=== PATIENT | female | born 1970 | race Caucasian/White ===

== ENCOUNTER 2019-05-15 09:51 | Emergency (ER) | payer OTHER, BC ==
--- NOTE | 2019-05-15 10:13 | Emergency Department Record ---
History of Present Illness - General Chief Complaint: Indigestion Stated Complaint: CHEST DISCOMFORT/HEARTBURN Time Seen by Provider: 05/15/19 10:06 Source: Patient Mode of Arrival: Ambulatory Limitations: No limitations - History of Present Illness Initial Comments: The patient is here due to upper abdominal pain with heartburn for 4 days. The patient's regular medicines are not helping. She states when she eats or drinks she is having pain in the upper abdomen. The patient also has had LÓPEZ and some very mild chest pressure with exertion over the last few days also along with mid back pain but believes the pressure is coming from the upper abdomen. There has been no sweating, nausea, or SOB at rest with the heartburn. The patient does have cardiac risk factors of tobacco use and high cholesterol. Onset/Timin -: Days(s) Pain Location: Substernal, Left chest, Right chest, Epigastric Severity: Mild Severity scale (1-10): 3 Quality: Aching, Heaviness, Sharp Consistency: Constant, Intermittent Improves With: Nothing Worsens With: Nothing Treatments Prior to Arrival: None - Related Data Home Medications Medication Instructions Recorded Confirmed Last Taken Omeprazole 20 mg PO DAILY 05/15/19 05/15/19 Unknown Previous Rx's Medication Instructions Recorded Sucralfate [Carafate] 1 gm PO QID #28 tablet 05/15/19 Allergies Allergy/AdvReac Type Severity Reaction Status Date / Time clindamycin Allergy Severe RASH Verified 05/15/19 09:58 oxycodone HCl [From Percocet] Allergy Intermediate ITCHING Verified 05/15/19 09:58 hydromorphone HCl Allergy Unknown ITCHING Unverified 05/15/19 09:58 Travel Screening - Travel/Exposure Within Last 30 Days Have you traveled within the last 30 days?: No Review of Systems Constitutional: Denies: Chills, Fever Eyes: Denies: Eye discharge ENT: Denies: Congestion, Throat pain Respiratory: Denies: Dyspnea Cardiovascular: Reports: Chest pain, Dyspnea on exertion Endocrine: Denies: Fatigue Gastrointestinal: Reports: Nausea. Denies: Diarrhea Genitourinary: Denies: Dysuria Musculoskeletal: Denies: Arthralgia Past Medical History - SOCIAL HISTORY Smoking Status: Current every day smoker Alcohol Use: Occasional Drug Use: None - RESPIRATORY Hx Respiratory Disorders: No - CARDIOVASCULAR Hx Cardio Disorders: Yes Comment:: high cholesterol - NEURO Hx Neuro Disorders: No - GI Hx GI Disorders: Yes Hx Reflux: Yes - Hx Genitourinary Disorders: No - ENDOCRINE Hx Endocrine Disorders: No - MUSCULOSKELETAL Hx Musculoskeletal Disorders: Yes Comment:: inflammatory arthritis - PSYCH Hx Psych Problems: No - HEMATOLOGY/ONCOLOGY Hx Hematology/Oncology Disorders: No Family Medical History Any Significant Family History?: Yes Hx Cancer: Father *Cancer Comment: throat Physical Exam - General General Appearance: Alert, Oriented x3, Cooperative, No acute distress - Head Head exam: Atraumatic, Normocephalic, Normal inspection - Eye Eye exam: Normal appearance, PERRL, EOMI - ENT Throat exam: Normal inspection. negative: Tonsillar erythema, Tonsillar exudate - Neck Neck exam: Normal inspection, Full ROM. negative: Tenderness - Respiratory Respiratory exam: Normal lung sounds bilaterally. negative: Respiratory distress - Cardiovascular Cardiovascular Exam: Regular rate, Normal rhythm, Normal heart sounds - GI/Abdominal GI/Abdominal exam: Soft, Tenderness (There is epigastric tenderness to palpation.). negative: Rebound, Rigid - Extremities Extremities exam: Normal inspection, Full ROM, Normal capillary refill. negative: Tenderness - Neurological Neurological exam: Alert. negative: Motor sensory deficit Course Vital Signs 05/15/19 09:55 Pulse Rate 101 H Respiratory 20 Rate Blood Pressure 124/107 Pulse Ox 100 - Reevaluation(s) Reevaluation #1: The patient is doing better and is resting comfortably. She states her heartburn is improving. 05/15/19 12:00 Reevaluation #2: The patient is doing much better and states the IV Protonix and po Carafate did resolve her discomfort. Presently she has no pain, heartburn, or any discomfort with eating or drinking. I did explain to her that her entire workup is normal including her CT, EKG, US, and all the lab work. We will refer the patient to GI for an EGD and she is instructed to stop her soda intake and to quit smoking. 05/15/19 13:53 Reevaluation #3: I did discuss the case with Dr. Tapia and he will get the patient on the schedule for an EGD next week. 05/15/19 14:28 Reevaluation #4: The patient is doing very well at discharge. I also strongly doubt any serious cardiac issue due to the patient having normal labs and EKG, and with a HEART SCORE of 2 with 2 neg Troponins. 05/15/19 14:29 Medical Decision Making - Data Complexity MDM Data: Labs Ordered and/or Reviewed, X-Ray Ordered and/or Reviewed, EKG Ordered and/or Reviewed - Lab Data Result diagrams: 05/15/19 10:05 05/15/19 10:05 - EKG Data -: EKG Interpreted by Me EKG: No Acute Changes, Normal EKG - Radiology Data Radiology results: Report reviewed (Chest CTA: Neg.) Disposition Disposition: Discharge Clinical Impression: GERD with esophagitis Disposition: Home, Self-Care Condition: (2) Stable Instructions: Indigestion (ED) Additional Instructions: Please continue your regular medicines and please add the Carafate. Please see one of the GI doctors in the [facility] next week. Return to the ER for any worsening symptoms. Prescriptions: Sucralfate [Carafate] 1 gm PO QID #28 tablet Referrals: [facility] [Provider Group] Forms: Patient Portal Access Time of Disposition: 13:56 Quality - Quality Measures Quality Measures: N/A - Blood Pressure Screening View Details: Yes Does Patient Have Any of the Following: No Blood Pressure Classification: Hypertensive Reading Systolic Measurement: 118 Diastolic Measurement: 93 Screening for High Blood Pressure: < First Hypertensive BP, F/U Documented > [G8950] First Hypertensive Follow-up Interventions: Referral to alternative/primary care provider.
[2019-05-15] MEDS ORDERED: MAGNESIUM HYDROXIDE/AL HYDROX 30 ML, LIDOCAINE VISC 2% 15ML 15 ML PO ONE ×2 (10:18)
[2019-05-15 10:23] LABS: ABSOLUTE NEUTROPHIL COUNT 4.55; BASO % 0.2 % (0-6); EOS % 0.8 % (0-6); GRAN % 53.5 % (47-80); HEMATOCRIT 40.6 % (35.0-47.0); HEMOGLOBIN 13.7 gm/dl (11.6-16.0); LYMPH % 38.2 % (16-45); MEAN CELL VOLUME 86.6 fl (81-97); MEAN CORPUSCULAR HEMOGLOBIN 29.2 pg (27-33); MEAN CORPUSCULAR HGB CONC 33.7 g/dl (32-36); MEAN PLATELET VOLUME 9.2 fl (7.4-10.4); MONO % 7.3 % (0-9); PLATELET COUNT 491 K/uL (130-400); RED BLOOD COUNT 4.69 M/uL (3.80-5.40); RED CELL DISTRIBUTION WIDTH 14.2 % (11.5-14.5); WHITE BLOOD COUNT W/O DIFF 8.5 K/uL (4.2-12.2)
[2019-05-15 10:33] LABS: BLOOD UREA NITROGEN 11 mg/dL (6-20); CREATININE 0.7 mg/dL (0.5-0.9); EST GLOMERULAR FILTRATION RATE > 60 mL/min
[2019-05-15 10:35] LABS: TOTAL PROTEIN 7.4 g/dL (6.6-8.7)
[2019-05-15 10:36] LABS: GLUCOSE,RANDOM 100 mg/dL (74-109)
[2019-05-15 10:37] LABS: INR 0.9; PARTIAL THROMBOPLASTIN TIME 26.8 SECONDS (24.5-39.1); PROTHROMBIN TIME (PATIENT) 9.5 SECONDS (9.5-12.1)
[2019-05-15 10:39] LABS: ALT/SGPT 27 U/L (<33); CREATINE PHOSPHOKINASE 93 U/L (26-192)
[2019-05-15 10:40] LABS: ALBUMIN 4.4 g/dL (4.0-5.0); ALKALINE PHOSPHATASE 93 U/L (35-104); AST/SGOT 30 U/L (10.0-35.0); BILIRUBIN,DIRECT < 0.2 mg/dL (0-0.3)
[2019-05-15] MEDS ORDERED: 0.9 % SODIUM CHLORIDE 1,000 ML BAG IV ONE (10:40)
[2019-05-15 10:42] LABS: CKMB 1.2 ng/mL (<3.77)
[2019-05-15] MEDS ORDERED: ACETAMINOPHEN 1,000 MG/100 ML BTL IVPB ONE (10:48)
[2019-05-15] MEDS ORDERED: PANTOPRAZOLE SODIUM IV 40 MG VIAL IVP ONE (12:22)
[2019-05-15] MEDS ORDERED: SUCRALFATE 1 G/10 ML UD PO ONE (12:23)
--- NOTE | 2019-05-19 13:52 | CT ANGIOGRAM REPORT ---
EXAM: CT ANGIOGRAM OF THE CHEST WITH CONTRAST AND POST PROCESSING HISTORY: CHEST PAIN. INTENSE RIGHT POSTERIOR THORAX PAIN FOR FOR FIVE DAY. HISTORY OF PRIOR PNEUMOTHORAX. TECHNIQUE: Routine CTA examination of the chest was performed utilizing a pulmonary embolus protocol with 74 ml of Omnipaque 350 utilized. Maximum intensity projection reformatted images are generated in the coronal and sagittal planes and reviewed. FINDINGS: Opacification of the pulmonary arteries is satisfactory for interpretation. No convincing luminal filling defect in the outflow tract, main arteries, lobar arteries or proximal segmental arteries to suggest acute pulmonary embolic disease. The heart is not enlarged. There is no evidence of right heart strain. The thoracic aorta is normal in caliber throughout and without dissection. No gross coronary artery calcification. No mediastinal nor hilar mass/lymphadenopathy. No axillary adenopathy. The central airways are clear. No lung consolidation, pleural effusion, pericardial effusion, nor pneumothorax. No suspicious lung nodule. No gross esophageal wall thickening. The adrenal glands are not enlarged. The upper abdominal aorta is unremarkable. The gallbladder is unremarkable and no gross biliary ductal dilatation is seen. No lytic or blastic bone lesion. There are degenerative changes scattered within the visualized spine. IMPRESSION: 1. NO CTA EVIDENCE OF ACUTE PULMONARY EMBOLIC DISEASE NOR THORACIC AORTIC DISSECTION. NO OTHER EVIDENCE OF AN ACUTE INTRATHORACIC ABNORMALITY. 2. BILATERAL BREAST IMPLANTS APPEARING INTACT. JOB NUMBER: [id number] [employer]
--- NOTE | 2019-05-19 14:04 | ULTRASOUND REPORT ---
EXAM: ULTRASOUND OF THE ABDOMEN, LIMITED HISTORY: SEVERE HEARTBURN. TECHNIQUE: Routine ultrasound examination of the right upper abdomen was performed. Comparison: Same day CT angiogram of the chest. CT of the abdomen and pelvis without contrast dated 01/01/15. FINDINGS: The pancreatic head and tail are obscured by overlying bowel gas. The remainder of the pancreas is visualized and normal in appearance. The intrahepatic IVC is patent. The liver is echogenic and coarsened in echotexture throughout. This is most commonly seen with steatosis. No hepatic mass. No intra nor extrahepatic biliary ductal dilatation with the common hepatic duct measuring 4 mm. The gallbladder is normal in appearance and there is a negative sonographic Bragg's sign. Screening evaluation of the kidneys does not demonstrate hydronephrosis nor mass. The right kidney measures 12 cm in length. IMPRESSION: 1. THE LIVER APPEARS MILDLY ECHOGENIC AND COARSENED IN ECHOTEXTURE. THIS IS MOST COMMONLY SEEN WITH STEATOSIS. 2. NO OTHER ABNORMALITY IDENTIFIED. NONVISUALIZATION OF THE PANCREATIC HEAD AND TAIL DUE TO OVERLYING BOWEL GAS. JOB NUMBER: [id number] [employer]TDD
== END 2019-05-15 14:38 | disposition home or self-care (01) ==
LOC: ER 09:51
DX: K21.0 Gastro-esophageal reflux disease with esophagitis (principal); R10.13 Epigastric pain; R07.89 Other chest pain; F17.210 Nicotine dependence, cigarettes, uncomplicated
CPT/HCPCS: 71275; 76705; 80048; 80076; 82550; 82553; 83690; 84484; 85025; 85379; 85610; 85730; 93005; 93010; 96365; 96375; 99284; C9113; J7030

== ENCOUNTER 2019-05-22 11:39 | Day surgery (SDC) | payer OTHER, BC ==
[2019-05-22] MEDS ORDERED: PROPOFOL 10 MG/ML VIAL IV ONE (11:40)
[2019-05-22] MEDS ORDERED: LIDOCAINE 2% MDV (20MG/ML) 20ML VIAL IV ONE (11:40)
--- NOTE | 2019-05-23 08:10 | Operative Note ---
OPERATION: ESOPHAGOGASTRODUODENOSCOPY with photo. PREOPERATIVE DIAGNOSIS: Noncardiac chest pain. POSTOPERATIVE DIAGNOSIS: Retained food in stomach suspicious for gastroparesis. PROCEDURE: After informed consent was obtained from the patient, she was placed in the left lateral decubitus position in the endoscopy suite, sedated and monitored by the department of anesthesia. Once sedated, a well-lubricated CDM814 gastroscope was placed in the posterior oropharynx under direct visualization and passed to the proximal esophagus. The endoscope was advanced through the proximal, mid, and distal esophagus. The esophagus in its length was unremarkable. The gastric body demonstrated a moderate amount of retained debris and food and liquid which was aspirated via the endoscope. The underlying mucosa appeared unremarkable although suboptimal views were noted because of the retained debris. The pylorus, duodenal bulb, and sweep were unremarkable. There was no obvious stricture noted. J-turn views of the proximal stomach were unremarkable although somewhat restricted due to the retained food and debris. The endoscope was straightened and retracted from the patient with no new findings or irregularities were noted. It should be noted that the GE junction and esophagus appeared unremarkable. RECOMMENDATIONS: I will have the patient undergo a gastric emptying study to further evaluate her possible gastroparesis which could contribute to reflux and dyspepsia. As always, thank you for allowing me to participate in the healthcare of your patients. PEÑA
== END 2019-05-22 13:10 | disposition home or self-care (01) ==
LOC: HOP 11:39
PROVIDERS: ATTEND Internal Medicine Gastroenterology
DX: R07.89 Other chest pain (principal); K21.9 Gastro-esophageal reflux disease without esophagitis; G25.81 Restless legs syndrome